=== PATIENT | female | born 1970 | race Caucasian/White ===

== ENCOUNTER 2019-02-04 10:26 | Emergency (ER) | payer BC ==
[~2019-02-04] VITALS: Ht 170.2 cm; Wt 52.2 kg
[2019-02-04 10:26] VITALS: BP 121/76
[~2019-02-04 10:26] MED LIST: ALPR0.25 PO
[2019-02-04] MEDS ORDERED: RABIES VACCINE (PCEC)/PF 1 EA KIT IM ONE ×2 (11:00→11:06)
== END 2019-02-04 12:04 | disposition home or self-care (01) ==
LOC: ER 10:26
DX: Z23 Encounter for immunization (principal); F41.9 Anxiety disorder, unspecified; M79.7 Fibromyalgia; Z60.2 Problems related to living alone

== ENCOUNTER 2019-02-08 10:35 | Emergency (ER) | payer BC ==
[~2019-02-08] VITALS: Ht 170.2 cm; Wt 54.0 kg
[2019-02-08 10:42] VITALS: BP 112/68
[2019-02-08] MEDS ORDERED: RABIES VACCINE (PCEC)/PF 1 EA KIT IM ONE ×2 (10:50→11:00)
--- NOTE | 2019-02-08 11:03 | NUR ---
Patient discharged to home in stable condition. Written and verbal after care instructions given. Patient verbalizes understanding of instruction.
== END 2019-02-08 11:05 | disposition home or self-care (01) ==
LOC: ER 10:38
DX: Z20.3 Contact with and (suspected) exposure to rabies (principal); F41.9 Anxiety disorder, unspecified; M79.7 Fibromyalgia; Z60.2 Problems related to living alone; Z79.899 Other long term (current) drug therapy

== ENCOUNTER 2019-02-15 11:09 | Emergency (ER) | payer BC ==
[~2019-02-15] VITALS: Ht 160 cm; Wt 52.2 kg
[2019-02-15 11:30] VITALS: BP 134/77
[2019-02-15] MEDS ORDERED: RABIES VACCINE (PCEC)/PF 1 EA KIT IM ONE ×2 (11:37→12:00)
== END 2019-02-15 11:56 | disposition home or self-care (01) ==
LOC: ER 11:14
DX: Z23 Encounter for immunization (principal); F41.9 Anxiety disorder, unspecified; M79.7 Fibromyalgia; Z60.2 Problems related to living alone

== ENCOUNTER 2019-11-29 15:51 | Emergency (ER) | payer BC ==
[~2019-11-29] VITALS: Ht 170.2 cm; Wt 52.6 kg
--- NOTE | 2019-11-29 16:17 | NUR ---
PT CAME TO ER BED 6 C/O DIZZINESS. PT STATES THAT SHE ALSO HAS PAIN IN HER LOWER BACK AND LOWER ABDOMEN. AAOX4. NO SOB. BREATHING EVENLY AND UNLABORED ON ROOM AIR. CONNECTED TO MONITOR.
--- NOTE | 2019-11-29 16:18 | NUR ---
SEEN AND EXAMINED BY
--- NOTE | 2019-11-29 16:20 | NUR ---
BLOOD DRAWN AND SENT TO LAB BY HEPATOLOGIST.
[2019-11-29 16:26] LABS: BASOPHILS # (AUTO) 0.1 /CMM (0.0-0.2); BASOPHILS % (AUTO) 1.2 % (0.0-2.0); EOSINOPHILS % (AUTO) 0.9 % (0.0-6.0); HEMATOCRIT 44 % (33-45); HEMOGLOBIN 14.6 g/dL (11.5-14.8); LYMPHOCYTES # (AUTO) 1.1 /CMM (0.8-4.8); LYMPHOCYTES % (AUTO) 12.9 % (20.0-44.0); MEAN CORPUSCULAR HGB CONC 33 g/dl (31.0-36.0); MEAN CORPUSCULAR VOLUME 92 fL (82-100); MONOCYTES # (AUTO) 0.8 /CMM (0.1-1.30); MONOCYTES % (AUTO) 9.5 % (2.0-12.0); NEUTROPHILS # (AUTO) 6.6 /CMM (1.8-8.9); NEUTROPHILS % (AUTO) 75.5 % (43.0-81.0); PLATELET COUNT (AUTO) 346 /CMM (150-450); WHITE BLOOD COUNT (AUTO) 8.7 K/uL (4.3-11.0)
[2019-11-29 16:34] LABS: CALCIUM, SERUM 9.5 mg/dL (8.5-10.1); CARBON DIOXIDE 29 mmol/L (21-32); CHLORIDE 104 mmol/L (98-107); CREATININE 0.8 mg/dL (0.6-1.3); GLUCOSE 99 mg/dL (74-106); POTASSIUM 3.8 mmol/L (3.5-5.1); SODIUM SERUM 141 mmol/L (136-145); UREA NITROGEN, BLOOD 12 mg/dL (7-18)
[2019-11-29 16:39] LABS: ALANINE AMINOTRANSFERASE 17 U/L (12-78); ALBUMIN 4.3 g/dL (3.4-5.0); ALKALINE PHOSPHATASE 74 U/L (46-116); ASPARTATE AMINOTRANSFERASE 21 U/L (15-37); BILIRUBIN,DIRECT 0.2 mg/dL (0.0-0.2); BILIRUBIN,TOTAL 0.9 mg/dL (0.2-1.0); TOTAL PROTEIN, SERUM 7.1 g/dL (6.4-8.2)
[2019-11-29 17:32] LABS: THYROID STIMULATING HORMONE 1.481 uIU/mL (0.358-3.74)
[2019-11-29 17:55] LABS: APPEARANCE,URINE Clear (CLEAR); BILIRUBIN,URINE Negative (NEGATIVE); BLOOD, URINE Negative Ery/uL (NEGATIVE); COLOR,URINE Yellow (YELLOW); KETONES,URINE Negative (NEGATIVE); LEUKOCYTE ESTERASE ,URINE Negative (NEGATIVE); NITRITE, URINE Negative (NEGATIVE); PROTEIN,URINE Negative (NEGATIVE); UGLUCOSE Negative (NEGATIVE); UROBILINOGEN,URINE 0.2 EU/dL (0.2)
--- NOTE | 2019-11-29 18:27 | NUR ---
Patient discharged to home in stable condition. Written and verbal after care instructions given. Patient verbalizes understanding of instruction.
[2019-11-29 18:28] VITALS: BP 122/75
== END 2019-11-29 18:28 | disposition home or self-care (01) ==
LOC: ER 16:00
DX: R06.00 Dyspnea, unspecified (principal); F41.9 Anxiety disorder, unspecified; Z60.2 Problems related to living alone
CPT/HCPCS: 36415; 80048-TC; 80076-TC; 81000-TC; 84439-TC; 84443-TC; 84484-TC; 84703-TC; 85025-TC; 85378-TC

== ENCOUNTER 2020-03-16 14:59 | Emergency (ER) | payer BC ==
[~2020-03-16] VITALS: Ht 170.2 cm; Wt 52.6 kg
--- NOTE | 2020-03-16 15:07 | NUR ---
CAME IN FOR L SIDED CHEST PAIN, SHARP, NON RADIATING X 3 DAYS, TO ER BED 9, HOOKED TO MONITOR, CHANGED TO HOSP GOWN, WARM BLANKET PROVIDED, PATIENT AAO x 4, BREATHING EVEN AND UNLABORED. DR RAMIREZ AT BEDSIDE
--- NOTE | 2020-03-16 15:26 | NUR ---
REFUSED IV PERIPHERAL LINE INSERTION, MS AWARE
[2020-03-16 15:57] LABS: BASOPHILS # (AUTO) 0.1 /CMM (0.0-0.2); BASOPHILS % (AUTO) 1.6 % (0.0-2.0); EOSINOPHILS % (AUTO) 0.5 % (0.0-6.0); HEMATOCRIT 42 % (33-45); HEMOGLOBIN 14.1 g/dL (11.5-14.8); LYMPHOCYTES # (AUTO) 1.1 /CMM (0.8-4.8); MEAN CORPUSCULAR HGB CONC 33 g/dl (31.0-36.0); MEAN CORPUSCULAR VOLUME 92 fL (82-100); MONOCYTES # (AUTO) 0.7 /CMM (0.1-1.30); MONOCYTES % (AUTO) 9.1 % (2.0-12.0); NEUTROPHILS % (AUTO) 74.8 % (43.0-81.0); PLATELET COUNT (AUTO) 324 /CMM (150-450); RED BLOOD CELL COUNT(AUTO) 4.59 MIL/uL (4.0-5.2)
[2020-03-16 16:21] LABS: CALCIUM, SERUM 8.8 mg/dL (8.5-10.1); CARBON DIOXIDE 28 mmol/L (21-32); CHLORIDE 104 mmol/L (98-107); CREATININE 0.9 mg/dL (0.6-1.3); GLUCOSE 102 mg/dL (74-106); POTASSIUM 4.1 mmol/L (3.5-5.1); SODIUM SERUM 140 mmol/L (136-145); UREA NITROGEN, BLOOD 10 mg/dL (7-18)
[2020-03-16 17:47] VITALS: BP 126/78
--- NOTE | 2020-03-16 17:47 | NUR ---
Patient discharged to home in stable condition. Written and verbal after care instructions given. Patient verbalizes understanding of instruction.
== END 2020-03-16 17:48 | disposition home or self-care (01) ==
LOC: ER 15:04
DX: R07.89 Other chest pain (principal); R06.02 Shortness of breath; Z60.2 Problems related to living alone; Z79.899 Other long term (current) drug therapy
CPT/HCPCS: 36415; 71045-TC; 80048-TC; 84484-TC; 85025-TC; 85378-TC